=== PATIENT | male | born 1975 | race Two or more races ===

== ENCOUNTER 2024-12-08 16:30 | Emergency (ER) | payer OTHER ==
[~2024-12-08] VITALS: Ht 160 cm; Wt 74.8 kg
[2024-12-08] MEDS ORDERED: TDAP [DIPH/PERTUSSIS/TET] 0.5 ML VIAL IM ONE (18:19)
[2024-12-08] MEDS ORDERED: GELATIN SPONGE,ABSORBABLE 1 EA SPONGE TP ONE (18:19)
[2024-12-08] MEDS ORDERED: MUPI15CR TP (18:26)
[2024-12-08] MEDS: TDAP [DIPH/PERTUSSIS/TET] 0.5 ML VIAL IM ONE (18:27)
[2024-12-08] MEDS: CELLULOSE,OXIDIZED 1 EACH EACH MC ONE (18:27)
[2024-12-08 19:25] VITALS: BP 138/87; TEMP 97.6; O2SAT 98
== END 2024-12-08 19:25 | disposition home or self-care (01) ==
LOC: ER 16:36
DX: S61.012A Laceration without foreign body of left thumb without damage to nail, initial encounter (principal); I10 Essential (primary) hypertension; W26.0XXA Contact with knife, initial encounter; Y93.G3 Activity, cooking and baking; Y92.89 Other specified places as the place of occurrence of the external cause; Y99.8 Other external cause status
CPT/HCPCS: 99283; 90471; 90715; A6403